=== PATIENT | female | born 1985 | race Caucasian/White ===

== ENCOUNTER 2019-01-05 15:23 | Inpatient (IN) | payer OTHER ==
[~2019-01-05] VITALS: Ht 162.6 cm; Wt 94.9 kg
[~2019-01-05 15:23] MED LIST: CALC500T PO; CYAN1TAB14 PO; PREN-39 PO; RTPRO5 IH
[2019-01-05 15:41] VITALS: Ht 162.6 cm; Wt 94.9 kg
[2019-01-05 15:42] VITALS: BP 133/82; PULSE 104; RESP 20
[2019-01-05] MEDS: LACTATED RINGER'S 1,000 ML IV SCH ×2 (15:45→23:45)
[2019-01-05] MEDS ORDERED: MISOPROSTOL 200 MCG TAB PR PRN (16:00)
[2019-01-05] MEDS ORDERED: OXYTOCIN 30 UNITS/LR 500 ML IV PRN (16:00)
[2019-01-05] MEDS ORDERED: OXYTOCIN 30 UNITS/LR 500 ML IV SCH ×2 (16:00)
[2019-01-05] MEDS ORDERED: METHYLERGONOVINE 0.2 MG INJ IM PRN (16:00)
[2019-01-05] MEDS ORDERED: CEFAZOLIN 2 GM/50 ML (PMX) 50 ML IVPB ONE (16:00)
[2019-01-05] MEDS ORDERED: CARBOPROST 250 MCG INJ IM PRN (16:00)
[2019-01-05] MEDS ORDERED: ONDANSETRON 4 MG INJ IV STA (17:58)
[2019-01-05] MEDS ORDERED: FAMOTIDINE 20 MG INJ IV ONE (18:00)
[2019-01-05] MEDS ORDERED: METOCLOPRAMIDE 10 MG INJ IV ONE (18:00)
--- NOTE | 2019-01-05 18:33 | PREAC ---
Date/Time of Note Date/Time of Note DATE: 01/05/19 TIME: 18:28 Anesthesia Eval and Record Evaluation Time Pre-Procedure Interview DATE: 01/05/19 TIME: 18:28 Age 33 Sex female NPO: 8 hrs Preoperative diagnosis term , previous Csection Planned procedure repeat Csection Past Medical History Past Medical History: None Surgery & Anesthesia Issues No known issue Meds Anticoagulation: No Beta Arnulfo within 24 hr: No Reason Beta Arnulfo not given: Pt. not on B-Arnulfo Reported Medications Albuterol Sulfate* (Proventil* Neb) 0.5 Ml Nebu, 0.5 ML IH 02/01/14 Calcium Carbonate (Calcium 500) 1 Tab Tablet, 1 TAB PO DAILY 02/01/14 Cyanocobalamin/Fa/Pyridoxine (FOLIC ACID 2.5 MG TABLET) 1 Each Tablet, 1 EACH PO 02/01/14 Vits W-Ca,Fe,Fa(<1MG) ( Vitamins) 1 Tab Tablet, 1 TAB PO DAILY 02/01/14 Current Medications Lactated Ringer's 1,000 ml @ 125 mls/hr Q8H IV Last administered on 01/05/19at 15:45; Admin Dose 125 MLS/HR; Start 01/05/19 at 15:45 Oxytocin/Lactated Ringer's 500 ml @ 500 mls/hr ONCE POST IV ; Start 01/05/19 at 16:00 Oxytocin/Lactated Ringer's 500 ml @ 125 mls/hr POST IV ; Start 01/05/19 at 16:00 Oxytocin/Lactated Ringer's 500 ml @ 0 mls/hr ONCE PRN IV .VAGINAL BLEEDING; Start 01/05/19 at 16:00 Methylergonovine Maleate (Methergine) 0.2 mg ONCE PRN IM .VAGINAL BLEEDING; Start 01/05/19 at 16:00 Carboprost Tromethamine (Hemabate) 250 mcg ONCE PRN IM .VAGINAL BLEEDING; Start 01/05/19 at 16:00 Misoprostol (Cytotec) 1,000 mcg ONCE PRN MD .VAGINAL BLEEDING; Start 01/05/19 at 16:00 Meds reviewed: Yes Allergies Coded Allergies: Beef Containing Products (Verified Allergy, Severe, 01/05/19) FEVER Pork/Porcine Containing Products (Verified Allergy, Severe, 01/05/19) FEVER methylphenidate (Verified Allergy, Severe, 01/05/19) HALLUCINATIONS/REQ HOSP X 1 MO AGE 6 latex (Verified Allergy, Intermediate, 01/05/19) HIVES Allergies Reviewed: Yes Labs/Studies Labs Reviewed: Reviewed by anesthesiologist Result Diagram: 01/05/19 1600 Laboratory Tests 01/05/19 16:00 test: Positive Pre-procedure Exam Last vitals Vital Signs Date Temp Pulse Resp B/P (MAP) Pulse Ox O2 O2 Flow FiO2 Time Delivery Rate 01/05/19 98.5 104 20 133/82 Room Air 15:42 (99) Airway: Adequate mouth opening, Adequate thyromental dist Mallampati: Mallampati III Teeth: Normal Lung: Normal Heart: Normal ASA Physical Status ASA physical status: 2 Emergency: None Planned Anesthetic Neuraxial: Spinal Planned Pain Management Sub-arachniod narcotics, Parenteral pain med, Other neuraxial med Pre-operative Attestations Prior to commencing anesthesia and surgery, the patient was re-evaluated, there was verification of: *The patient's identity *The results of appropriate recent lab work and preoperative vital signs *The above evaluation not changing prior to induction *Anesthetic plan, risk benefits, alternative and complications discussed with patient/family; questions answered; patient/family understands, accepts and wishes to proceed. NETTE COOL MD Jan 05, 2019 18:33
--- NOTE | 2019-01-05 18:55 | PREOPHP ---
DATE OF ADMISSION: 01/05/2019 HISTORY OF PRESENT ILLNESS: Ms. Nemo Ramirez is a 33-year-old 8, para 1, EDC 01/08/2019, intrauterine at 39 weeks' gestational age, admitted today for elective repeat del angel luis. She denies any contractions, vaginal bleeding or discharge. Her care took place at [facility]. PAST MEDICAL HISTORY: None. MEDICATIONS: vitamins. PAST SURGICAL HISTORY: x1 previous section. OBSTETRICAL HISTORY: x1 previous section, x3 missed AB, x4 termination of . GYNECOLOGIC HISTORY: 12, regular 3 to 4 days. Denies any sexually transmitted diseases. Sexually a ctive with 1 partner. SOCIAL HISTORY: The patient reports that she currently does not do smoking, drugs or alcohol; karla redd, tested positive for marijuana in 05/2018. FAMILY HISTORY: None. REVIEW OF SYSTEMS: All within normal except history of present illness. PHYSICAL EXAMINATION: HEENT: Within normal. LUNGS: CTA bilateral. CARDIOVASCULAR: S1, S2. Regular rate, rhythm. ABDOMEN: Gravid, nontender. Negative CVA bilateral. EXTREMITIES: Negative calf tenderness. PELVIC: Vaginal exam deferred. heart tracing category 1. ASSESSMENT: 1. Intrauterine at 39 weeks' gestational age. 2. Previous section x1. 3. Desires elective repeat delivery. 4. Declined vaginal after . PLAN: Consent for repeat delivery. Risks, benefits and alternatives were explained. All q uestions were answered. Dictated By: OSCAR LOZADA/KHUSHI Conf#: [id number] DID#: [id number]
[2019-01-05] MEDS ORDERED: KETOROLAC 30 MG INJ IV PRN ×2 (19:00)
[2019-01-05] MEDS ORDERED: HYDROmorphONE 1 MG/5 ML IV SYRINGE IV PRN ×3 (19:00)
[2019-01-05] MEDS ORDERED: ZOLPIDEM 5 MG TAB PO PRN (19:00)
[2019-01-05] MEDS ORDERED: NALOXONE (0.4 MG/ML) INJ IV PRN (19:00)
[2019-01-05] MEDS ORDERED: DIPHENHYDRAMINE 50 MG INJ IV PRN ×2 (19:00)
[2019-01-05] MEDS ORDERED: ONDANSETRON 4 MG INJ IV PRN ×2 (19:00)
[2019-01-05] MEDS ORDERED: HYDROmorphONE 0.5 MG/0.5 ML SYG IV PRN ×2 (19:00)
[2019-01-05] MEDS ORDERED: FENTAnyl 50 MCG/ML VIAL IV PRN ×2 (19:00)
[2019-01-05] MEDS ORDERED: morphine SULFATE/PF (10 MG/10 ML) INJ ONE (20:07)
[2019-01-05] MEDS ORDERED: OXYTOCIN 10 UNIT INJ ONE (20:08)
[2019-01-05] MEDS ORDERED: BUPIVACAINE 0.75%/DEXT (SPINAL) 2 ML INJ ONE (20:11)
[2019-01-06] MEDS ORDERED: OXYTOCIN 30 UNITS/LR 500 ML IV SCH (01:25)
--- NOTE | 2019-01-06 01:25 | OPPN ---
Date/Time of Note Date/Time of Note DATE: 01/06/19 TIME: 01:23 Operative Report Planned Procedure Procedure date Jan 06, 2019 Procedure(s) repeat low transverse CD Performed by see signature line Hog Handler: BACILIO DONALDSON MD 2nd Hog Handler none Anesthesiologist: NETTE COOL MD Pre-procedure diagnosis 1. Intrauterine at 39 weeks' gestational age. 2. Previous section x1. 3. Desires elective repeat delivery. 4. Declined vaginal after . [id number] Anesthesia Type: Ebqwb1w spinal Post-Procedure Post-procedure diagnosis Same Findings a viable female 8/9, weight 7lb 5 oz, normal uterus, tubes and ovaries Estimated Blood Loss: 500 - 600 mls (500) Specimen(s) none Grafts/Implant(s) none Complication(s) none OSCAR SALES MD Jan 06, 2019 01:25
[2019-01-06] MEDS ORDERED: OXYCODONE/ACETAMINOPHEN (5/325) TAB PO PRN ×2 (01:30)
[2019-01-06] MEDS ORDERED: NACL 0.9% 3 ML SYG IV SCH (01:30)
[2019-01-06] MEDS ORDERED: METHYLERGONOVINE 0.2 MG INJ IM PRN (01:30)
[2019-01-06] MEDS ORDERED: LANOLIN HPA 1 PKT TOP PRN (01:30)
[2019-01-06] MEDS ORDERED: CARBOPROST 250 MCG INJ IM PRN (01:30)
[2019-01-06] MEDS ORDERED: CEFAZOLIN 2 GM/50 ML (PMX) 50 ML IVPB SCH (01:30)
[2019-01-06] MEDS ORDERED: OXYTOCIN 30 UNITS/LR 500 ML IV PRN (01:30)
[2019-01-06] MEDS ORDERED: MISOPROSTOL 200 MCG TAB PR PRN (01:30)
[2019-01-06 05:05] VITALS: BP 104/61; PULSE 58; RESP 18
[2019-01-06 08:05] VITALS: BP 97/53; PULSE 50; RESP 20
[2019-01-06] MEDS: SENNA/DOCUSATE NA (8.6MG/50MG) TAB PO SCH ×2 (09:00→22:02)
[2019-01-06] MEDS: CEFAZOLIN 2 GM/50 ML (PMX) 50 ML IVPB SCH ×3 (10:06→23:05)
[2019-01-06 12:00] VITALS: BP 98/52; PULSE 82; RESP 18
[2019-01-06 15:45] VITALS: BP 96/51; PULSE 91; RESP 18
[2019-01-06] MEDS: LACTATED RINGER'S 1,000 ML IV SCH ×3 (15:45→23:05)
--- NOTE | 2019-01-06 15:55 | OPR ---
DATE OF OPERATION: 01/06/2019 PRIMARY DIAGNOSES: 1. Intrauterine at 39 weeks' gestational age. 2. Previous section x1. 3. Desires elective repeat delivery. 4. Declined vaginal after . POSTOPERATIVE DIAGNOSES: 1. Intrauterine at 39 weeks' gestational age. 2. Previous section x1. 3. Desires elective repeat delivery. 4. Declined vaginal after . PROCEDURE: Repeat low transverse delivery. SURGEON: Tayo Garcia MD TELECOMMUNICATIONS LINE INSTALLER: Ricky Silva MD ANESTHESIA: Spinal. COMPLICATIONS: None. ESTIMATED BLOOD LOSS: 500 mL. FINDINGS: A viable female, 8 and 9 respectively at 1 and 5 minutes, weight of 7 pounds 5 ounce s, normal uterus, tubes and ovaries. DESCRIPTION OF PROCEDURE: After explaining the risks, benefits and alternatives with the patient and consent was signed in chart, the patient was taken to the operating room where spinal anesthesia was found to be adequate. She was then prepared and draped in normal sterile fashion in dorsal supine p osition with a leftward tilt. A Pfannenstiel skin incision was then made with a scalpel and carried to the underlying fascia. The fascia was incised in the midline and incision was extended laterally with Fitzpatrick scissors. The superior aspect of the fascial incision was grasped with curved clamps, elev ated and the underlying rectus muscles were dissected off bluntly. Attention was then turned to the inferior aspect of the incision which in similar fashion was grasped, tented up with curved clamps an d the rectus muscles were dissected off bluntly. The rectus muscle was in midline. Perito neum was identified and entered sharply with Metzenbaum scissors. The peritoneal incision was extend ed superiorly and inferiorly with visualization of the bladder. The bladder blade was then inserted and vesicouterine peritoneum was identified, grasped with pickups and sharply with Metzenbaum scissor s. This incision was extended laterally and a bladder flap was created digitally. The bladder blade was then reinserted and the lower uterine segment was incised in transverse fashion with a scalpel. The uterine incision was extended laterally. The bladder blade was removed and the infant's head de livered atraumatically. The nose and mouth were suctioned. The cord was clamped and cut. The infan t was handed off to awaiting chemical treatment operator. The placenta was then removed. The uterus was exterioriz ed and cleared of all clots and debris. The uterine incision was repaired with 1-0 chromic in a runn ing locked fashion. A second layer of same suture was used for imbrication obtaining excellent hemos tasis. The uterus was returned to the abdomen. The gutters were cleared of all clots. The peritone um and rectus abdominis muscles were reapproximated with 3-0 Vicryl in interrupted fashion. The fasc ia was reapproximated with 0 Vicryl in a running fashion. The subcutaneous tissue was reapproximated with 2-0 plain gut in a running fashion. The skin was closed with absorbable damaris. The patient tolerated procedure well. All counts were correct. The patient was taken to recovery room in stable condition. Dictated By: TAYO LOZADA/KHUSHI Conf#: [id number] DID#: [id number]
[2019-01-06] MEDS: IBUPROFEN 600 MG TAB PO SCH ×2 (19:00→23:47)
[2019-01-06 20:50] VITALS: BP 112/55; PULSE 85; RESP 18
[2019-01-06] MEDS: KETOROLAC 30 MG INJ IV SCH (23:47)
[2019-01-07] VITALS: BP_SYST 100; BP_SYST 112; BP_DIAS 53; BP_DIAS 55; PULSE 80; PULSE 85; RESP 17; RESP 18
[2019-01-07] MEDS ORDERED: DIPHENHYDRAMINE 50 MG INJ IV ONE (00:30)
[2019-01-07 04:00] VITALS: BP 92/50; PULSE 88; RESP 19
[2019-01-07] MEDS ORDERED: KETOROLAC 30 MG INJ IV STA (04:29)
[2019-01-07] MEDS: LACTATED RINGER'S 1,000 ML IV SCH (05:50)
[2019-01-07 08:25] VITALS: BP 111/69; PULSE 93; RESP 18
--- NOTE | 2019-01-07 08:49 | QN ---
Documentation Comment progress note pod 1 patient seen and evaluated no complaints vsstable afebrile ab soft nt dressing clean/dry extremity no edema no calf tenderness a/ sp cd pod 1 stable afebrile p/ encourage ambulation OSCAR SALES MD Jan 07, 2019 08:49
[2019-01-07] MEDS: SENNA/DOCUSATE NA (8.6MG/50MG) TAB PO SCH ×2 (10:15→21:33)
[2019-01-07 20:00] VITALS: BP 105/73; PULSE 95; RESP 18
[2019-01-07] MEDS: KETOROLAC 30 MG INJ IV SCH (23:45)
[2019-01-08] VITALS: BP 116/78; PULSE 89; RESP 18
[2019-01-08 04:00] VITALS: BP 109/71; PULSE 94; RESP 18
[2019-01-08 08:00] VITALS: BP_SYST 70; PULSE 97; RESP 18
--- NOTE | 2019-01-08 08:10 | QN ---
Documentation Comment progress note pod 2 patient seen and evaluated no complaints vsstable afebrile ab soft nt c/d/i no distention extremity no edema no calf tenderness a/ sp cd pod 2 stable afebrile p/ discharge home today OSCAR SALES MD Jan 08, 2019 08:10
--- NOTE | 2019-01-08 08:12 | PD.PPDC ---
PULLING MACHINE OPERATOR Discharge Instruction Condition [id number] Patient Condition: Gqmis2j Good Diet Uttpq1Tj Diet: Gnvka9a Resume Regular Diet Activity/Restrictions [id number] Activity: Oxqex7w Normal Activity May Shower Epznd4Jb Restrictions: Sxhrw8f No Exercising No Lifting No Driving No Sexual Activity Nothing in the Vagina No [place] No Tampons, douche Follow-up Follow-up with Physician: 2, Week/Weeks Return to clinic for Iwjoq1Zp COIL REPAIR TECHNICIAN Instructions: Ajzfc7t Fever greater than 101 Chills Worsening abdominal pain Excessive Vaginal Bleeding More than 2 pads per hour Unable to tolerate diet Eqjwc0Dh OB Instructions: Tzdoe2i Breast Tenderness Depression Blurried Vision Headache Wvdgz2Ht Surgical Instructions: Putko9o Incisional Drainage Incisional Redness OSCAR SALES MD Jan 08, 2019 08:12
--- NOTE | 2019-01-08 09:32 | DS ---
DATE OF ADMISSION: 01/05/2019 DATE OF DISCHARGE: 01/08/2019 PRIMARY DIAGNOSIS: Intrauterine at 39 weeks' gestational age, previous section x1 , desires elective repeat delivery, declined . PROCEDURE: Repeat low transverse delivery. CONDITION ON DISCHARGE: Stable. ACTIVITY: None per vagina, no lifting x6 weeks. DIET: Regular. MEDICATIONS ON DISCHARGE: 1. Motrin 800 mg p.o. q.8h. p.r.n. pain. DISCHARGE SUMMARY: Ms. Nemo Ramirez underwent a repeat low transverse delivery on 01/06. She had a viable female, 8 and 9 respectively at 1 and 5 minutes, weight 7 pounds 5 oun valdo. She had an uneventful postop day 1 and 2. Her incision is clean, dry, and intact. She is ambu lating, tolerating diet, positive flatulence, positive bowel movement. She will be discharged home t nurys and follow up in the clinic in 2 weeks for /postop care. Dictated By: OSCAR LOZADA/KHUSHI Conf#: [id number] DID#: [id number] CC: OSCAR SALES MD;*EndCC*
[2019-01-08] MEDS: SENNA/DOCUSATE NA (8.6MG/50MG) TAB PO SCH (09:58)
--- NOTE | 2019-01-09 16:27 | DELSUM ---
Delivery Summary A-C Datetime Report Generated by CPN: 01/09/2019 16:27 DELIVERY PERSONNEL Moving Worker: Hogue, Cecelia MATERNAL INFORMATION Delivery Anesthesia: Spinal Medications in Delivery: see anesthesiologist flowsheet Delivery QBL (ml): 500 Placenta Cultured: No Maternal Complications: None LABOR SUMMARY EDC: 01/10/2019 00:00 No. Babies in Womb: 1 Attempted: No LABOR INFORMATION Reason for Induction: Not Applicable Oxytocin: N/A Group B Beta Strep: Not Done Antibiotics # of Doses: 1 Antibiotics Time of Last Dose: 01/06/2019 00:30 Steroids Given: None Reason Steroids Not Administered: Not Applicable MEMBRANES Membranes Rupture Method: Artificial Rupture of Membranes: 01/06/2019 00:48 Length of Rupture (hr): 0.00 Amniotic Fluid Color: Clear Amniotic Fluid Amount: Moderate Amniotic Fluid Odor: None STAGES OF LABOR Stage 3 hr: 0 Stage 3 min: 2 CSECTION DELIVERY Primary Indication: Repeat Elective Secondary Indication: Repeat Elective CSection Urgency: Elective CSection Incidence: Repeat Labor: Labor Elective: Elective CSection Incision: Lower Uterine Transverse BABY A INFORMATION Delivery Date/Time: 01/06/2019 00:48 Method of Delivery: Born in Route : No : N/A Forceps: N/A Vacuum Extraction: N/A Shoulder Dystocia : N/A SHOULDER DYSTOCIA BABY A Infant Delivery Date/Time: 01/06/2019 00:48 PRESENTATION/POSITION BABY A Presentation: Cephalic Cephalic Presentation: Vertex Vertex Position: Left Occipital Posterior Breech Presentation: N/A PLACENTA INFORMATION BABY A Placenta Delivery Time : 01/06/2019 00:50 Placenta Method of Delivery: Manual Removal Placenta Status: Delivered SCORES BABY A Heart Rate 1 min: >100 bpm Resp Effort 1 min: Good Cry Reflex Irritability 1 min: Cough/Sneeze/Pulls Away Muscle Tone 1 min: Active Motion Color 1 min: Blue/Pale Resuscitation Effort 1 min: Tactile Stimulation SCORE 1 MIN: 8 Heart Rate 5 min: >100 bpm Resp Effort 5 min: Good Cry Reflex Irritability 5 min: Cough/Sneeze/Pulls Away Muscle Tone 5 min: Active Motion Color 5 min: Body [place], Extremit Blue Resuscitation Effort 5 min: Tactile Stimulation SCORE 5 MIN: 9 INFANT INFORMATION BABY A Gestational Age at Delivery: 39.3 Gestational Status: Full Term- 39- 40.6 Weeks Infant Outcome : Liveborn Condition : Stable Sex: Female IDENTIFICATION/MEDS BABY A ID Band Number: [id number] ID Band Location: Right Leg; Left Arm Sensor Applied: Yes Sensor Number: [id number] Sensor Location : Cord Clamp Vitamin K Given : Not Given Erythromycin Given: Not Given WEIGHT/LENGTH BABY A Infant Birthweight (gm): 3315 Infant Weight (lb): 7 Infant Weight (oz): 5 Length (in): 19.00 Length (cm): 48.26 CORD INFORMATION BABY A No. Cord Vessels: 3 Nuchal Cord : Around Neck x1, Loose Cord Blood Taken: Yes Suction: Mouth; Nose ASSESSMENT BABY A Infant Complications: None Physical Findings at Delivery: Within Normal Limits Infant Respirations: Appears Normal It Program Engagement Director/ALS Called : Yes Care By: Klaudia RUBIO Transferred To: Remains with Mother
[2019-01-09] MEDS ORDERED: IBUPROFEN 600 MG TAB PO SCH (23:59)
== END 2019-01-08 16:27 | disposition home or self-care (01) | DRG 788 ==
LOC: L-D 15:23 → PP1 01-06 04:50
PROVIDERS: ADMIT Obstetrics & Gynecology; ATTEND Obstetrics & Gynecology
PROC: 10D00Z1 Extraction of Products of Conception, Low, Open Approach (ICD-10-PCS; principal; 2019-01-06)
DX: O65.5 Obstructed labor due to abnormality of maternal pelvic organs (principal); O34.211 Maternal care for low transverse scar from previous cesarean delivery; Z3A.39 39 weeks gestation of pregnancy; Z37.0 Single live birth
CPT/HCPCS: 80307; 85025; 85610; 85730; 86592; 86850; 86900; 86901; 87340; 99464; J0690; J1200; J1885; J2274; J2405; J2590; J2765; J7120